=== PATIENT | male | born 1950 | race Caucasian/White ===

== ENCOUNTER 2017-03-18 04:53 | Emergency (ER) | payer MEDICARE, OTHER ==
[~2017-03-18] VITALS: Ht 170.2 cm; Wt 99.8 kg
[2017-03-18] MEDS ORDERED: VALS80TA30 (05:03)
[2017-03-18] MEDS ORDERED: TRAM50TA2 (05:03)
[2017-03-18] MEDS ORDERED: FENO134C (05:03)
[2017-03-18] MEDS ORDERED: GLIM2TAB (05:03)
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
[2017-03-18] MEDS ORDERED: CYCL10TA9 PO (06:33)
[2017-03-18 06:38] VITALS: BP 155/96
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
== END 2017-03-18 06:40 | disposition home or self-care (01) ==
LOC: EDUNIT# 04:53 → ER 04:57
DX: S09.90XA Unspecified injury of head, initial encounter (principal); S16.1XXA Strain of muscle, fascia and tendon at neck level, initial encounter; S23.3XXA Sprain of ligaments of thoracic spine, initial encounter; S46.911A Strain of unspecified muscle, fascia and tendon at shoulder and upper arm level, right arm, initial encounter; S46.912A Strain of unspecified muscle, fascia and tendon at shoulder and upper arm level, left arm, initial encounter; S22.079D Unspecified fracture of T9-T10 vertebra, subsequent encounter for fracture with routine healing; I10 Essential (primary) hypertension; E78.00 Pure hypercholesterolemia, unspecified; E11.9 Type 2 diabetes mellitus without complications; V48.5XXA Car driver injured in noncollision transport accident in traffic accident, initial encounter
CPT/HCPCS: 70450; 71010; 72125; 72128; 72131; 72146; 73030; 99283

== ENCOUNTER 2017-03-18 09:31 | Emergency (ER) | payer MEDICARE, OTHER ==
[~2017-03-18] VITALS: Ht 170.2 cm; Wt 99.8 kg
[~2017-03-18 09:31] MED LIST: CYCL10TA9 PO; FENO134C; GLIM2TAB; TRAM50TA2; VALS80TA30
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
[2017-03-18 11:20] VITALS: BP 108/72
== END 2017-03-18 11:20 | disposition home or self-care (01) ==
LOC: EDUNIT# 09:31 → ER 09:34
DX: S22.079D Unspecified fracture of T9-T10 vertebra, subsequent encounter for fracture with routine healing (principal); E78.00 Pure hypercholesterolemia, unspecified; I10 Essential (primary) hypertension; J45.909 Unspecified asthma, uncomplicated; E11.9 Type 2 diabetes mellitus without complications; X58.XXXD Exposure to other specified factors, subsequent encounter
CPT/HCPCS: 72146